=== PATIENT | female | born 1960 | race Caucasian/White ===

== ENCOUNTER 2016-12-12 12:11 | Emergency (ER) | payer BC, OTHER ==
[~2016-12-12] VITALS: Ht 157.5 cm; Wt 72.1 kg
[2016-12-12] MEDS ORDERED: ALPR0.5T7 (12:28)
[2016-12-12] MEDS ORDERED: fentaNYL INJECTION 100 MCG/2 ML AMP IVP STA (12:40)
[2016-12-12] MEDS ORDERED: NS IV 1000 ML 1,000 ML IV ONE (12:40)
--- NOTE | 2016-12-12 12:40 | ED Abdominal Pain ---
General Chief Complaint: Abdominal/GI Problems Stated Complaint: ABD PAIN/V Nursing Triage Note: AMB TO ED WITH EPIGASTRC PAIN WAS SEEN AT [facility] IN [place] YESTERDAY EKG DONE ALNONG WITH LAB EKG WAS OK UNKNOWN WHAT LAB SHOWED RECEIVED RX FOR ZOFRAN AND SUC RALFATE DID NOT GET THEM FILLAD Sepsis Screen: No Definite Risk Source of Information: Patient Exam Limitations: No Limitations History of Present Illness Time Seen By Provider: 12:35 Initial Comments 56 yo female patient presents to the ED with c/o epigastric and RUQ pain beginning Saturday. Patient was seen at [facility] in [place] yesterday with labs and EKG done. Patient was given zofran and carafate prescriptions, but did not pick medications up. Patient states she has been having intermittent RUQ pain that occurs approx 30 minutes after eating beef. Saturday began having epigastric burning that occurred immediately when solids and liquids hit the stomach. Does c/o nausea w/o vomiting. Patient does take motrin for ankle pain prn. Timing/Duration: Getting Worse, Other (see HPI) Severity/Quality: Aching, Burning Location: Epigastric Radiation: RUQ Activities at Onset: None Modifying Factors: Worsens With Eating Allergies and Home Medications Allergies Coded Allergies: adhesive tape (Verified Allergy, Unknown, 12/12/16) Home Medications Alprazolam 0.5 Mg Tablet, #90 (Reported) Famotidine 20 Mg Tablet, 20 MG PO BID, #20 Ref 0 Prescribed by: TIFFANIE ROBERSON on 12/12/16 1626 Omeprazole 40 Mg Capsule.dr, 40 MG PO DAILY, #30 Ref 0 Prescribed by: TIFFANIE ROBERSON on 12/12/16 1626 Tramadol HCl 50 Mg Tablet, 50 MG PO Q4H PRN for pain, #14 Ref 0 Prescribed by: TIFFANIE ROBERSON on 12/12/16 1626 Review of Systems Constitutional: No chills, No fever, No malaise Respiratory: Denies Cough, Denies Shortness of Air Cardiovascular: Denies Chest Pain, Denies Irregular Heart Rate, Denies Palpitations Gastrointestinal: See HPI, Denies Abdomen Distended, Abdominal Pain, Denies Blood Streaked Stools, Denies Constipated, Denies Diarrhea, Nausea, Poor Appetite, Poor Fluid Intake, Denies Rectal Bleeding, Denies Vomiting Genitourinary: Denies Burning, Denies Frequency, Denies Flank Pain, Denies Hematuria, Denies Pain Musculoskeletal: see HPI Skin: no symptoms reported Psychiatric/Neurological: No Symptoms Reported All Other Systems Reviewed Negative Unless Noted: Yes (Negative excepted noted.) Past Mdbcbsi-Taypku-Nzriwo Hx Patient Social History Alcohol Use: Occasionally Uses Recreational Drug Use: No Smoking Status: Current Everyday Smoker Recent Foreign Travel: No Contact w/Someone Who Travel: No Recent Infectious Disease Expo: No Surgeries HX Surgeries: Yes Surgeries: Oophorectomy (left salpingoophorectomy), Orthopedic Respiratory Hx Respiratory Disorders: No Cardiovascular Hx Cardiac Disorders: No Neurological Hx Neurological Disorders: No Reproductive System Female Reproductive Disorders: Ovarian Cyst Genitourinary Hx Genitourinary Disorders: No Gastrointestinal Hx Gastrointestinal Disorders: No Musculoskeletal Hx Musculoskeletal Disorders: No Endocrine Hx Endocrine Disorders: No Psychosocial Behavioral Health Disorders: Anxiety Reviewed Nursing Assessment Reviewed/Agree w Nursing PMH: Yes Family Medical History Significant Family History: No Pertinent Family Hx Physical Exam Vital Signs VS - Last 72 Hours, by Label 12/12/16 12/12/16 12:30 16:37 Temp 98.5 Pulse 84 72 Resp 18 18 B/P (MAP) 158/74 Pulse Ox 98 98 O2 Delivery Room Air Room Air Capillary Refill : Less Than 3 Seconds General Appearance: WD/WN, no apparent distress HEENT: PERRL/EOMI, pharynx normal Neck: supple, normal inspection Respiratory: lungs clear, normal breath sounds, no respiratory distress Cardiovascular: normal peripheral pulses, regular rate, rhythm, no edema, no murmur Gastrointestinal: normal bowel sounds, soft, no organomegaly, No distended, guarding (epigastric and RUQ), No rebound, tenderness (epigastric and RUQ) Extremities: no pedal edema, normal capillary refill Back: normal inspection, no CVA tenderness Neurologic/Psychiatric: alert, normal mood/affect, oriented x 3 Skin: normal color, warm/dry Progress/Results/Core Measures Results/Orders Lab Results Laboratory Tests Test 12/12/16 12:42 12/12/16 13:45 Range/Units White Blood Count 7.9 4.3-11.0 10^3/uL Red Blood Count 4.82 4.35-5.85 10^6/uL Hemoglobin 14.7 11.5-16.0 G/DL Hematocrit 44 35-52 % Mean Corpuscular Volume 92 80-99 FL Mean Corpuscular Hemoglobin 31 25-34 PG Mean Corpuscular Hemoglobin Concent 33 32-36 G/DL Red Cell Distribution Width 13.2 10.0-14.5 % Platelet Count 303 130-400 10^3/uL Mean Platelet Volume 10.7 H 7.4-10.4 FL Neutrophils (%) (Auto) 66 42-75 % Lymphocytes (%) (Auto) 25 12-44 % Monocytes (%) (Auto) 7 0-12 % Eosinophils (%) (Auto) 1 0-10 % Basophils (%) (Auto) 1 0-10 % Neutrophils # (Auto) 5.2 1.8-7.8 X 10^3 Lymphocytes # (Auto) 2.0 1.0-4.0 X 10^3 Monocytes # (Auto) 0.6 0.0-1.0 X 10^3 Eosinophils # (Auto) 0.1 0.0-0.3 10^3/uL Basophils # (Auto) 0.1 0.0-0.1 10^3/uL Sodium Level 142 135-145 MMOL/L Potassium Level 3.8 3.6-5.0 MMOL/L Chloride Level 106 98-107 MMOL/L Carbon Dioxide Level 26 21-32 MMOL/L Anion Gap 10 5-14 MMOL/L Blood Urea Nitrogen 7 7-18 MG/DL Creatinine 0.71 0.60-1.30 MG/DL Estimat Glomerular Filtration Rate > 60 BUN/Creatinine Ratio 10 Glucose Level 88 70-105 MG/DL Calcium Level 9.7 8.5-10.1 MG/DL Total Bilirubin 0.4 0.1-1.0 MG/DL Aspartate Amino Transf (AST/SGOT) 20 5-34 U/L Alanine Aminotransferase (ALT/SGPT) 30 0-55 U/L Alkaline Phosphatase 63 40-136 U/L Total Protein 7.3 6.4-8.2 GM/DL Albumin 4.4 3.2-4.5 GM/DL Lipase 53 8-78 U/L Urine Color YELLOW Urine Clarity CLEAR Urine pH 7 5-9 Urine Specific Riddle 1.005 L 1.016-1.022 Urine Protein NEGATIVE NEGATIVE Urine Glucose (UA) NEGATIVE NEGATIVE Urine Ketones NEGATIVE NEGATIVE Urine Nitrite NEGATIVE NEGATIVE Urine Bilirubin NEGATIVE NEGATIVE Urine Urobilinogen NORMAL NORMAL MG/DL Urine Leukocyte Esterase NEGATIVE NEGATIVE Urine RBC (Auto) NEGATIVE NEGATIVE Urine RBC NONE /HPF Urine WBC RARE /HPF Urine Squamous Epithelial Cells 2-5 /HPF Urine Crystals NONE /LPF Urine Bacteria NEGATIVE /HPF Urine Casts NONE /LPF Urine Mucus NEGATIVE /LPF Urine Culture Indicated NO My Orders Orders - TIFFANIE ROBERSON Cbc With Automated Diff (12/12/16 12:21) Comprehensive Metabolic Panel (12/12/16 12:21) Lipase (12/12/16 12:21) Ua Culture If Indicated (12/12/16 12:21) Saline Lock/Iv-Start (12/12/16 12:21) Us Gallbladder [id number] (12/12/16 12:40) Fentanyl Injection (Sublimaze Injection (12/12/16 12:40) Ondansetron Injection (Zofran Injectio (12/12/16 12:45) Ns Iv 1000 Ml (Sodium Chloride 0.9%) (12/12/16 12:40) Ondansetron Injection (Zofran Injectio (12/12/16 13:15) Famotidine Injection (Pepcid Injection) (12/12/16 13:09) Morphine Injection (Morphine Injection (12/12/16 14:53) Promethazine Injection (Phenergan Injec (12/12/16 14:53) Ct Abdomen/Pelvis W (12/12/16 14:53) Iohexol Injection (Omnipaque 350 Mg/Ml 1 (12/12/16 15:00) Ns (Ivpb) (Sodium Chloride 0.9% Ivpb Bag (12/12/16 15:00) Iv Push [employer] Ed (12/12/16 ) Medications Given in ED Vital Signs/I&O Vital Sign - Last 12Hours 12/12/16 12/12/16 12:30 16:37 Temp 98.5 Pulse 84 72 Resp 18 18 B/P (MAP) 158/74 Pulse Ox 98 98 O2 Delivery Room Air Room Air Blood Pressure Mean: 102 Diagnostic Imaging Diagonstic Imaging: Ultrasound Plain Films/CT/US/NM/MRI: other (gallbladder) Comments FINDINGS: The visualized portions of the pancreas appear unremarkable. The liver demonstrates no focal lesion. There is hepatopetal flow in the portal vein demonstrated. The gallbladder demonstrates no stones or wall thickening. Slightly prominent fold is seen. No pericholecystic fluid. Sonographic Villeda sign reportedly negative. The right kidney is 10 cm in length with no hydronephrosis or focal lesion. No fluid collection in the upper right abdomen seen. IMPRESSION: Unremarkable exam. Dictated on workstation # [id number] Reviewed: Reviewed by Me (radiology report reviewed by me) Diagonstic Imaging: CT Plain Films/CT/US/NM/MRI: abdomen, pelvis Comments CT abdomen: There is colonic diverticulosis, but no CT evidence of acute diverticulitis. Normal appendix is identified. Small bowel loops are nondistended. Evaluation of the liver demonstrates relative area of hypoenhancement within the lateral subcapsular margins of the segment 8 of the liver (image 13, series 2). Area in question measures approximately 1.2 cm in diameter. Note is made that the margins of the lesion are less well-defined on the delayed sequence. A few other punctate more hypodense foci are also noted within the right and left lobes. The spleen, kidneys, adrenal glands, and pancreas have an unremarkable CT appearance. There is no loculated fluid collection, free fluid, nor free air within the abdomen. No abnormal mesenteric or retroperitoneal adenopathy is seen. Bony structures show no acute abnormalities. There is mild calcified and noncalcified aortic and arterial atherosclerosis. CT pelvis: Urinary bladder is grossly unremarkable. There is no loculated fluid collection, free fluid, nor free air within the pelvis. No abnormal lymph nodes are seen. Bony structures show no acute abnormalities. IMPRESSION: 1. No acute abnormality within the abdomen or pelvis. 2. Colonic diverticulosis, but no CT evidence of acute diverticulitis. 3. Dominant hypodense lesion within segment 8 of the liver. Conceivably, this could represent an atypical hemangioma. Benign cyst is felt to be unlikely. Exact etiology is indeterminate. Could consider further characterization with Eovist MRI. Alternatively, a four-month followup CT could be performed to ensure stability. 4. Few other punctate more hypodense lesions scattered throughout the liver. Dictated on workstation # [id number] Reviewed: Reviewed by Me (radiology report reviewed by me. ) Departure Communication Progress Notes Patient seen and evaluated. Labs and the bladder ultrasound were done without acute findings. Patient reported pain returning at a 9/10. CT scan of the abdomen and pelvis were performed which also was negative for acute process. Patient was noted to have a lesion in the liver with recommendations for outpatient MRI. Have instructed patient to follow-up with her primary care physician for recheck as well as ordering the outpatient study to further evaluate the liver lesion. Patient was given fentanyl, Zofran, Phenergan, morphine, and IV fluids with improvement in symptoms. We'll discharge the patient home with follow-up with her PCP for outpatient HIDA scan. Patient and family from the emergency department without difficulty. Impression Impression: Primary Impression: Biliary dyskinesia Additional Impression: Gastritis Qualified Codes: K29.00 - Acute gastritis without bleeding Disposition: HOME, SELF-CARE Condition: Improved Departure-Patient Inst. Decision time for Depature: 16:24 Referrals: SANKET GARNICA MD, KRISTIN D APRN (PCP) Primary Care Physician Patient Instructions: Gastritis (DC), Ulcer and Gastritis Diet Add. Discharge Instructions: All discharge instructions reviewed with patient and/or family. Voiced understanding. Medications as directed. Continue usual home medications. Drink plenty of fluids. Strict low fat diet. Follow-up with your family practitioner for outpatient HIDA scan to further evaluated the gallbladder and possible need for MRI of the abdomen to further evaluated the liver. Avoid NSAIDS (motin, aleve), aspirin, spicy foods, fatty foods, alcohol, carbonated beverages, caffeinated beverages, smoking, or second hand smoke. Do not eat within 2 hours of lying down. Return to the emergency room for worsened pain, fever, vomiting, vomiting blood, black stools, rectal bleeding, or any other concerns. Scripts Famotidine (Pepcid) 20 Mg Tablet 20 MG PO BID, #20 TAB 0 Refills Prov: TIFFANIE ROBERSON 12/12/16 Tramadol HCl (Tramadol HCl) 50 Mg Tablet 50 MG PO Q4H Y for pain, #14 TAB 0 Refills Prov: TIFFANIE ROBERSON 12/12/16 Omeprazole (Omeprazole) 40 Mg Capsule. 40 MG PO DAILY, #30 CAP 0 Refills Prov: TIFFANIE ROBERSON 12/12/16 TIFFANIE ROBERSON Dec 12, 2016 12:40
[2016-12-12] MEDS ORDERED: ONDANSETRON 4 MG/2 ML (SDV) Z0FRAN IVP ONE ×2 (12:45→13:15)
[2016-12-12 12:49] LABS: BASOPHILS # (AUTO) 0.1 10^3/uL (0.0-0.1); BASOPHILS % (AUTO) 1 % (0-10); EOSINOPHILS # (AUTO) 0.1 10^3/uL (0.0-0.3); EOSINOPHILS % (AUTO) 1 % (0-10); LYMPHOCYTES % (AUTO) 25 % (12-44); MEAN CORPUSCULAR HEMOGLOBIN 31 PG (25-34); MEAN CORPUSCULAR HGB CONC 33 G/DL (32-36); MEAN CORPUSCULAR VOLUME 92 FL (80-99); MEAN PLATELET VOLUME 10.7 FL (7.4-10.4); MONOCYTES # (AUTO) 0.6 X 10^3 (0.0-1.0); MONOCYTES % (AUTO) 7 % (0-12); NEUTROPHILS # (AUTO) 5.2 X 10^3 (1.8-7.8); NEUTROPHILS % (AUTO) 66 % (42-75); PLATELET COUNT 303 10^3/uL (130-400); RED BLOOD COUNT 4.82 10^6/uL (4.35-5.85); RED CELL DISTRIBUTION WIDTH 13.2 % (10.0-14.5); WHITE BLOOD COUNT 7.9 10^3/uL (4.3-11.0)
[2016-12-12] MEDS ORDERED: FAMOTIDINE 20MG/2ML IV (PEPCID) IV STA (13:09)
[2016-12-12 13:12] LABS: ALANINE AMINOTRANSFERASE 30 U/L (0-55); ALBUMIN 4.4 GM/DL (3.2-4.5); ANION GAP 10 MMOL/L (5-14); ASPARTATE AMINO TRANSFERASE 20 U/L (5-34); BILIRUBIN,TOTAL 0.4 MG/DL (0.1-1.0); BLOOD UREA NITROGEN 7 MG/DL (7-18); BUN/CREATININE RATIO 10; CALCIUM 9.7 MG/DL (8.5-10.1); CARBON DIOXIDE 26 MMOL/L (21-32); CHLORIDE 106 MMOL/L (98-107); CREATININE SERUM 0.71 MG/DL (0.60-1.30); GFR ESTIMATED > 60; GLUCOSE 88 MG/DL (70-105); LIPASE 53 U/L (8-78); POTASSIUM 3.8 MMOL/L (3.6-5.0); SODIUM 142 MMOL/L (135-145); TOTAL PROTEIN 7.3 GM/DL (6.4-8.2)
--- NOTE | 2016-12-12 13:44 | Diagnostic Imaging Report ---
PROCEDURE: US Gallbladder. TECHNIQUE: Multiple real-time grayscale images were obtained over the right upper quadrant in various projections. INDICATION: Abdominal pain, vomiting. FINDINGS: The visualized portions of the pancreas appear unremarkable. The liver demonstrates no focal lesion. There is hepatopetal flow in the portal vein demonstrated. The gallbladder demonstrates no stones or wall thickening. Slightly prominent fold is seen. No pericholecystic fluid. Sonographic Villeda sign reportedly negative. The right kidney is 10 cm in length with no hydronephrosis or focal lesion. No fluid collection in the upper right abdomen seen. IMPRESSION: Unremarkable exam. Dictated by: Dictated on workstation # [id number]
[2016-12-12 13:53] LABS: BILIRUBIN,URINE NEGATIVE (NEGATIVE); KETONES,URINE NEGATIVE (NEGATIVE); LEUKOCYTE ESTERASE ,URINE NEGATIVE (NEGATIVE); NITRITE,URINE NEGATIVE (NEGATIVE); PH,URINE 7 (5-9); PROTEIN,URINE NEGATIVE (NEGATIVE); UROBILINOGEN,URINE NORMAL (NORMAL)
[2016-12-12 14:14] LABS: WBC,URINE RARE /HPF
[2016-12-12] MEDS ORDERED: PROMETHAZINE INJ 25 MG/ML (PHENERGAN) AMP IVP STA (14:53)
[2016-12-12] MEDS ORDERED: morphine INJ 10 MG/ML 1ML (SYR OR VIAL) IVP STA (14:53)
[2016-12-12] MEDS ORDERED: NS 100 ML (IVPB) BAG IV ONE (15:00)
[2016-12-12] MEDS ORDERED: IOHEXOL 350 MG/ML 100 ML (OMNIPAQUE 350) VIAL IV ONE (15:00)
--- NOTE | 2016-12-12 15:59 | Diagnostic Imaging Report ---
PROCEDURE: CT abdomen and pelvis with contrast. TECHNIQUE: Multiple contiguous axial images were obtained through the abdomen and pelvis after administration of intravenous contrast. INDICATION: Mid upper abdominal pain. Nausea. COMPARISON: None. FINDINGS: Included views of the lung bases are clear. CT abdomen: There is colonic diverticulosis, but no CT evidence of acute diverticulitis. Normal appendix is identified. Small bowel loops are nondistended. Evaluation of the liver demonstrates relative area of hypoenhancement within the lateral subcapsular margins of the segment 8 of the liver (image 13, series 2). Area in question measures approximately 1.2 cm in diameter. Note is made that the margins of the lesion are less well-defined on the delayed sequence. A few other punctate more hypodense foci are also noted within the right and left lobes. The spleen, kidneys, adrenal glands, and pancreas have an unremarkable CT appearance. There is no loculated fluid collection, free fluid, nor free air within the abdomen. No abnormal mesenteric or retroperitoneal adenopathy is seen. Bony structures show no acute abnormalities. There is mild calcified and noncalcified aortic and arterial atherosclerosis. CT pelvis: Urinary bladder is grossly unremarkable. There is no loculated fluid collection, free fluid, nor free air within the pelvis. No abnormal lymph nodes are seen. Bony structures show no acute abnormalities. IMPRESSION: 1. No acute abnormality within the abdomen or pelvis. 2. Colonic diverticulosis, but no CT evidence of acute diverticulitis. 3. Dominant hypodense lesion within segment 8 of the liver. Conceivably, this could represent an atypical hemangioma. Benign cyst is felt to be unlikely. Exact etiology is indeterminate. Could consider further characterization with Eovist MRI. Alternatively, a four-month followup CT could be performed to ensure stability. 4. Few other punctate more hypodense lesions scattered throughout the liver. Dictated by: Dictated on workstation # [id number]
[2016-12-12] MEDS ORDERED: FAMO-119 PO (16:26)
[2016-12-12] MEDS ORDERED: OMEP40CA36 PO (16:26)
[2016-12-12] MEDS ORDERED: TRAM50TA2 PO (16:26)
[2016-12-12 16:37] VITALS: BP 108/68
== END 2016-12-12 16:17 | disposition home or self-care (01) ==
LOC: EDUNIT# 12:11 → ER 12:15
DX: K82.8 Other specified diseases of gallbladder (principal); K29.70 Gastritis, unspecified, without bleeding; F41.9 Anxiety disorder, unspecified; F17.200 Nicotine dependence, unspecified, uncomplicated; Z87.42 Personal history of other diseases of the female genital tract; Z90.721 Acquired absence of ovaries, unilateral
CPT/HCPCS: 36415; 74177; 76705; 80053; 81000; 83690; 85025; 96361; 96374; 96375; 96376

== ENCOUNTER → 2016-12-26 | Outpatient (CLI) | payer BC ==
[~2016-12-26] MED LIST: ALPR0.5T7; CATHETER FLUSH 10 ML SYR IV PRN; FAMO-119 PO; OMEP40CA36 PO; TRAM50TA2 PO
--- NOTE | 2016-12-26 11:44 | Diagnostic Imaging Report ---
EXAMINATION: HIDA with EF measurements Indication: Abdominal pain TECHNIQUE: After the intravenous administration of 5.4 mCi of Tc 99m Choletec, imaging over the abdomen was obtained. This was followed by administration of Ensure orally to stimulate intrinsic CCK secretion, followed by continued imaging with ejection fraction measured. FINDINGS: There is homogeneous uptake in the liver with prompt bile duct and gallbladder filling seen. Bowel activity is seen at 15 minutes. Based on further imaging and gallbladder area of interest activity measurements after the administration of Ensure, the gallbladder ejection fraction is estimated at 76%. IMPRESSION: 1. Normal hepatobiliary uptake and Gallbladder filling. 2. Normal gallbladder ejection fraction. Dictated by: Dictated on workstation # [id number]
== END ==
LOC: RAD 09:18
PROVIDERS: ATTEND Family Medicine
DX: R10.13 Epigastric pain (principal)
CPT/HCPCS: 78227

== ENCOUNTER → 2016-12-27 | Outpatient (CLI) | payer BC ==
[~2016-12-27] MED LIST changes: -CATHETER FLUSH 10 ML SYR IV PRN; +GADOXETATE 2.5 MMOL/10 ML (EOVIST) IV ONE
--- NOTE | 2016-12-27 14:16 | Diagnostic Imaging Report ---
PROCEDURE: MR imaging abdomen with and without contrast. TECHNIQUE: Multiplanar, multisequence MR imaging of the abdomen was performed with and without contrast. INDICATION: Evaluate liver mass seen in segment VIII on CT scan of 12/12/2016. 8 mL of Eovist is administered intravenously. FINDINGS: There is a 1.2 cm lobulated well-defined mass seen in the right hepatic lobe, segment VIII. It is associated with bright T2 signal and has peripheral arterial enhancement that progressively fills in compatible with a hemangioma. There are other T2 bright lesions in the hepatic parenchyma, less than 4 mm in size, with no obvious enhancement suggestive of tiny cysts. No suspicious liver mass is identified. The gallbladder and the common bile duct appear normal. The pancreas appears unremarkable. The spleen and adrenal glands appear unremarkable. The kidneys have symmetric enhancement. The bone marrow in the lumbar spine appears unremarkable. The abdominal aorta is normal in caliber. IMPRESSION: A 1.2 cm lesion seen in the right hepatic lobe, segment VIII has features suggestive of hemangioma. A followup MRI of the abdomen without contrast in 4-6 months is recommended to ensure stability. Dictated by: Dictated on workstation # [id number]
== END ==
LOC: RAD 10:24
PROVIDERS: ATTEND Family Medicine
DX: K76.89 Other specified diseases of liver (principal); R10.13 Epigastric pain
CPT/HCPCS: 74183

== ENCOUNTER → 2017-12-25 | Outpatient (CLI) | payer BC ==
[~2017-12-25] MED LIST changes: -GADOXETATE 2.5 MMOL/10 ML (EOVIST) IV ONE
--- NOTE | 2017-12-26 14:23 | Diagnostic Imaging Report ---
INDICATION: Digital mammogram bilateral screening with 3-D tomosynthesis. This study was compared to the prior exams of 02/18/17 and 02/15/16. At this time, there are no current complaints. The current study was also evaluated with a Computer Aided Detection (CAD) system. FINDINGS: The fibroglandular tissue in both breasts is heterogeneously dense. This does limit the sensitivity of this exam. Overall, there does not appear to have been any significant change when compared to the prior study. No primary or secondary sign of malignancy is noted. 3D tomographic images fail to show any sign of malignancy. IMPRESSION: There is no radiographic evidence for malignancy. ACR BI-RADS Category 1: Negative. Result letter will be mailed to the patient. Note: At least 10% of breast cancer is not imaged by mammography. Dictated by: Dictated on workstation # [id number]
== END ==
LOC: RAD 09:51
PROVIDERS: ATTEND Nurse Practitioner
DX: Z12.31 Encounter for screening mammogram for malignant neoplasm of breast (principal)
CPT/HCPCS: 77067